=== PATIENT | female | born 1970 | race Caucasian/White ===

== ENCOUNTER 2023-04-20 22:42 | Emergency (ER) | payer BC ==
[2023-04-21] MEDS ORDERED: HYDROmorphone 1 MG/ML CARPUJECT IM STA (00:12)
[2023-04-21] MEDS ORDERED: DEXAMETHASONE 10 MG/ML VIAL IM STA (00:12)
--- NOTE | 2023-04-21 00:46 | XRAY Report ---
PROCEDURE: Elbow 3 View LT INDICATIONS: pain after injury TECHNIQUE: 3 views of the elbow were acquired. COMPARISON: None. FINDINGS: Bones: Small ossification is seen distal to the medial epicondyle that could represent small osseous avulsion fracture versus displaced enthesophyte or calcific tendinopathy. Soft tissues: Small effusion. No suspicious soft tissue calcifications or masses. Soft tissue silvio a seen surrounding the elbow. IMPRESSION: Suspected small mildly displaced avulsion fracture at the medial epicondyle. Small joint effusion. Reviewed by: Vince Pemberton MD on 04/21/2023 12:45 AM PDT Approved by: Vince Pemberton MD on 04/21/2023 12:45 AM PDT Station ID: [id number]
--- NOTE | 2023-04-21 01:39 | ED Physician Documentation ---
PD HPI UPPER EXT INJURY - Stated complaint Stated Complaint: L ARM PX - Chief complaint Chief Complaint: Trauma Ext - History obtained from History obtained from: Patient, Family - Additonal information Additional information: The patient comes to the emergency department chief complaint of worsening left upper extremity pain after having a jerk on her dog's leash several days ago. She states that she did not really think anything of the incident at the time and had used both hands/arms to pull her dog back forcefully. She states that she had no pain at the time and actually finished walking the dogs without difficulty. However, she states the next day she woke up with severe pain and some stiffness of her left elbow which seem to be focused medially. The patient states that over the last few days, she has developed pain in the musculature of her forearm and a bruise that came to the surface. She states she has a pain that shoots all the way up to her shoulder and her fingers are swollen. She is not sure if this is all from the incident of the dog or something else. She denies pain or swelling anywhere else. She does have a history of RA. No other complaints at this time. PD PAST MEDICAL HISTORY - Present Medications Home Medications: Ambulatory Orders Medication Instructions Recorded Confirmed HYDROcod/ACETAM 5/325 [Hurt 5/325] 1 - 2 tablet PO Q6H PRN #20 tablet 04/21/23 - Allergies Allergies/Adverse Reactions: Allergies Allergy/AdvReac Type Severity Reaction Status Date / Time No Known Drug Allergies Allergy Verified 04/20/23 22:53 PD ED PE NORMAL - Vitals Vital signs reviewed: Yes - General General: Alert and oriented X 3, No acute distress, Well developed/nourished - HEENT HEENT: Atraumatic, PERRL, EOMI, Moist mucous membranes - Neck Neck: Supple, no meningeal sign - Respiratory Respiratory: No respiratory distress - Derm Derm: Normal color, Warm and dry, No rash, Other (Single, older appearing, brownish-red contusion on the dorsum of the patient's mid forearm.) - Extremities Extremities: No deformity, Other (Exquisite tenderness over medial/ulnar aspect of elbow. Tenderness over proximal forearm dorsum. Significantly limited range of motion of elbow secondary to pain. Moderate edema of all digits) - Neuro Neuro: Alert and oriented X 3, No motor deficit, No sensory deficit - Psych Psych: Normal mood, Normal affect Results - Vitals Vitals: Vital Signs - 24 hr 04/20/23 04/21/23 04/21/23 22:48 00:20 00:44 Temperature 35.8 C L Heart Rate 68 69 73 Respiratory 17 18 18 Rate Blood Pressure 147/86 H 149/81 H 122/73 O2 Saturation 99 100 98 04/21/23 02:34 Temperature Heart Rate 69 Respiratory 18 Rate Blood Pressure 140/74 H O2 Saturation 98 Oxygen O2 Source Room air - Rads (name of study) X-ray series left elbow Relevant Findings:: Final report received, See rad report (Avulsion fracture medial epicondyle) PD Medical Decision Making - ED course Complexity details: reviewed results, re-evaluated patient, considered differential, d/w patient, d/w family ED course: The patient was sent for x-ray series of her left elbow and found to have an avulsion fracture of the medial condyle. I discussed the findings with the patient and her that we would need to place her in a posterior mold splint. This was done. Unfortunately, the patient is visiting from [place] and does not live locally. However, she does have establish care with an orthopedic clinic affiliated with [facility] and although her orthopedist specializes in ankles and feet, I have advised her to call their office and see if they have specialist in other areas as well, particularly the upper extremity/elbow. The patient understands that this being Friday, that she should call her orthopedist office first thing on Friday to set up a follow-up appointment. For now, she has been given a sling and has been treated with analgesia in the emergency department. She is also been given a prepack and a prescription for pain medication. We have discussed elevation and ice, as well as the usual indications for return. Departure - Departure Disposition: 01 Home, Self Care Clinical Impression: Elbow fracture, left Qualifiers: Encounter type: initial encounter Fracture type: closed Qualified Code(s): S42.402A - Unspecified fracture of lower end of left humerus, initial encounter for closed fracture Condition: Stable Instructions: ED Fx Elbow Prescriptions: HYDROcod/ACETAM 5/325 [Hurt 5/325] 1 - 2 tablet PO Q6H PRN #20 tablet PRN Reason: Pain Comments: Your x-ray series shows that you have broken a small piece off the inside edge of your bone at the elbow. Most likely, this occurred when you are arm jerked against the dog's leash and forcibly pulled the piece of bone off. This is also most likely why it did not really hurt initially, at his as it is not causing a major structural issue with your elbow. The pain now is likely mostly due to a very intense inflammatory reaction because of the broken bone. For now, you have been placed in a posterior mold splint and you should leave this on until he can follow-up with orthopedics. First thing on Friday, you should call your Orthopedist office and ask them who can see you for your elbow. Ort hopedics will need to evaluate your elbow and decide whether they think you should just be casted or whether you should have surgery. A prescription for pain medication has been electronically transmitted to the [facility] pharmacy in [place] at your request. Discharge Date/Time: 04/21/23 02:39
[2023-04-21] MEDS ORDERED: HYDROcod/ACET 5/325 Prepack 4 PO STA (01:51)
[2023-04-21 02:35] VITALS: BP 140/74
== END 2023-04-21 02:39 | disposition home or self-care (01) ==
LOC: ED 22:42
DX: S42.402A Unspecified fracture of lower end of left humerus, initial encounter for closed fracture (principal); X58.XXXA Exposure to other specified factors, initial encounter
CPT/HCPCS: 73080; 96372; 99283; 99284; J1170